=== PATIENT | male | born 1980 | race American Indian/Alaskan Native ===

== ENCOUNTER 2017-09-20 00:03 | Emergency (ER) | payer MEDICAID ==
[2017-09-20] MEDS ORDERED: Ketorolac 60 MG/2 ML SDV IM ONE (00:43)
--- NOTE | 2017-09-20 01:03 | EDM.PDOC ---
ED HPI GENERAL MEDICAL PROBLEM - General Chief Complaint: Back Pain or Injury Stated Complaint: BACK PAIN Time Seen by Provider: 09/20/17 00:40 Source of Information: Reports: Patient History Limitations: Reports: Other (medical records not immediately available.) - History of Present Illness INITIAL COMMENTS - FREE TEXT/NARRATIVE: 36 yo male had surgery in his back many months ago. A couple months ago an infection was apparently discovered in his hardware and he was tx'd in [place] @ [facility] with IV antibiotics. He was later discharged to a [facility] to continue his IV antibiotics. He walked out of the [facility] without consulting any physician and now has been off any antibiotics for about 2 weeks. The family had some communication with one of the providers in [place] about 12 hrs ago(in reality after chart review it was 16 hrs ago) and they were told to go to the [facility] here in [place] to be seen(chart review suggests they were told to return to [place]). Instead for no apparent reason they waited until about 12 :30am tonight and came here to the ER. His complaint is mid back pain and concern about possible infection. He has not been running fevers. His pain is worse, but then he missed getting his methadone over the past couple of days. 1 month ago his labs showed: WBC ct 19.3, CRP 7.0, ESR 67(these area the last measurements for these). Onset: Gradual Duration: Week(s):, Chronic Location: Reports: Back Quality: Reports: Ache Severity: Moderate Improves with: Reports: Rest Worsens with: Reports: Movement Context: Reports: Other (Hx of back surgery and subsequent back infection, non- compliant with his antibiotic regimen. ) Associated Symptoms: Denies: Chest Pain, Fever/Chills, Nausea/Vomiting, Rash, Shortness of Breath Treatments LABEL REMOVER: Reports: Acetaminophen Upper Back Pain Score (Numeric/FACES): 7 - Related Data Allergies Allergy/AdvReac Type Severity Reaction Status Date / Time No Known Allergies Allergy Verified 09/20/17 00:29 Home Meds: Home Meds Methadone 90 mg PO ASDIRECTED 08/28/15 [History] Acetaminophen [Tylenol] 650 mg PO QID 09/28/15 [History] Docusate Sodium [Colace] 100 mg PO BID PRN 09/28/15 [History] Past Medical History HEENT History: Reports: Impaired Vision Respiratory History: Reports: Bronchitis, Recurrent Musculoskeletal History: Reports: Back Pain, Chronic Psychiatric History: Reports: Addiction - Infectious Disease History Infectious Disease History: Reports: Chicken Pox - Past Surgical History GI Surgical History: Reports: Appendectomy Neurological Surgical History: Reports: Thoracic Spine Social & Family History - Family History Family Medical History: Unobtainable - Tobacco Use Smoking Status *Q: Current Every Day Smoker Years of Tobacco use: 15 Packs/Tins Daily: 1 - Caffeine Use Caffeine Use: Reports: None - Recreational Drug Use Recreational Drug Use: No Recreational Drug Type: Reports: Methamphetamine Recreational Drug Use Frequency: Monthly Recreational Drug Last Use: 08-22-2015 ED ROS GENERAL - Review of Systems Review Of Systems: See Below Constitutional: Reports: No Symptoms HEENT: Reports: No Symptoms Respiratory: Reports: No Symptoms Cardiovascular: Reports: No Symptoms Endocrine: Reports: No Symptoms GI/Abdominal: Reports: No Symptoms : Reports: No Symptoms Musculoskeletal: Reports: Back Pain Skin: Reports: No Symptoms Neurological: Reports: No Symptoms ED EXAM, UPPER BACK/NECK PAIN - Physical Exam Exam: See Below Exam Limited By: No Limitations General Appearance: Alert, WD/WN, No Apparent Distress Eye Exam: Bilateral Eye: Normal Inspection Ears Exam: Normal External Exam, Normal Canal, Hearing Grossly Normal Nose Exam: Normal Inspection, Normal Mucousa Throat/Mouth Exam: Normal Inspection, Normal Lips, Normal Oropharynx, Normal Voice, No Airway Compromise Head Exam: Atraumatic, Normocephalic Neck Exam: Non-Tender Cardiovascular/Respiratory: Regular Rate, Rhythm GI/Abdominal: Normal Bowel Sounds, Soft, Non-Tender, No Distention Back Exam: Normal Inspection, Other (well healed surgical scar over the thoracic and lumbar spine. ). No: CVA Tenderness (R), CVA Tenderness (L) Extremities: Normal Inspection, Normal Range of Motion, Non-Tender, No Pedal Edema Neurologic: stone polisher machine II-XII nml As Tested, No Motor/Sensory Deficits, Alert, Normal Mood/Affect, Oriented x 3 Psychiatric: Normal Affect, Normal Mood Skin Exam: Normal Color, Warm/Dry, Other (No erythema, no increased warmth.). No: Rash Lymphatic: No Adenopathy Course - Vital Signs Text/Narrative:: Accepted by Dr. Desai, hospitalist @ [facility] at 0210h Last Recorded V/S: Last Vital Signs Temp 36.2 C 09/20/17 00:17 Pulse 93 09/20/17 00:17 Resp 16 09/20/17 00:17 BP 133/84 09/20/17 00:17 Pulse Ox 98 09/20/17 00:17 - Orders/Labs/Meds Orders: Active Orders 24 hr Category Date Time Status DRUG SCREEN, URINE [URCHEM] Stat Lab 09/20/17 02:09 Ordered Labs: Laboratory Tests 09/20/17 09/20/17 09/20/17 Range/Units 01:05 01:05 01:05 WBC 6.0 (4.5-11.0) K/uL RBC 4.97 (4.30-5.90) M/uL Hgb 10.9 L D (12.0-15.0) g/dL Hct 35.8 L (40.0-54.0) % MCV 72 L (80-98) fL MCH 22 L (27-31) pg MCHC 30 L (32-36) % Plt Count 401 H (150-400) K/uL Neut % (Auto) 67 H (36-66) % Lymph % (Auto) 22 L (24-44) % [place] % (Auto) 7 H (2-6) % Eos % (Auto) 3 (2-4) % Baso % (Auto) 0 (0-1) % ESR 96 H (0-20) mm/hr C-Reactive Protein 2.27 H (0.0-0.3) mg/dL Meds: Medications Discontinued Medications Generic Name Dose Route Start Last Admin Trade Name Lelandq PRN Reason Stop Dose Admin Ketorolac Tromethamine 60 mg 09/20/17 00:43 09/20/17 01:28 Toradol IM 09/20/17 00:44 60 mg ONETIME ONE Administration Departure - Departure Time of Disposition: 02:30 Disposition: DC/Tfer to Acute Hospital 02 Condition: Fair Clinical Impression: Osteomyelitis of thoracic spine, Medical non-compliance, History of intravenous drug abuse - Discharge Information Referrals: PCP,None [Primary Care Provider] - Forms: ED Department Discharge - My Orders Last 24 Hours: My Active Orders 09/20/17 02:09 DRUG SCREEN, URINE [URCHEM] Stat - Assessment/Plan Last 24 Hours: My Active Orders 09/20/17 02:09 DRUG SCREEN, URINE [URCHEM] Stat
[2017-09-20] MEDS ORDERED: ceFAZolin 2 GM in Premix Bag 1 BAG IV ONE (02:34)
[2017-09-20] MEDS ORDERED: Sodium Chloride 0.9% 10 ML Syringe FLUSH PRN (02:34)
[2017-09-20 03:10] VITALS: BP 124/76
== END 2017-09-20 03:56 ==
LOC: JP.ED 00:03
DX: M46.24 Osteomyelitis of vertebra, thoracic region (principal); Z91.19 Patient's noncompliance with other medical treatment and regimen; F17.210 Nicotine dependence, cigarettes, uncomplicated
CPT/HCPCS: 36415; 85025; 85651; 86140; 87040; 96365; 96372; 99284; J0690; J1885; J7050